=== PATIENT | female | born 1940 | race Caucasian/White ===

== ENCOUNTER 2021-03-30 10:37 | Emergency (ER) | payer MEDICARE, SELFPAY ==
[~2021-03-30] VITALS: Ht 152.4 cm; Wt 61.2 kg
[2021-03-30 10:45] VITALS: BP_SYST 140
--- NOTE | 2021-03-30 10:48 | NUR ---
PT C/O SOB, COUGH CONGESTION BODY ACHES X6 DAYS. PT COMPLETED ZPAK AND ROUND OF STEROIDS PO WITHOUT RELIEF.
[2021-03-30] MEDS ORDERED: IPRATROPIUM/ALBUTEROL SULFATE 3 ML AMPUL.NEB (DUONEB) INH ONE (11:00)
[2021-03-30] MEDS ORDERED: methylPREDNISolone SOD SUCC/PF 62.5 MG/ML VIAL IVP ONE (11:00)
[2021-03-30 11:16] LABS: BASOPHILS % (AUTO) 0.3 % (0.0-2.0); EOSINOPHILS % (AUTO) 0.4 % (0.0-4.0); HEMATOCRIT 44.2 % (36-48); HEMOGLOBIN 15.3 g/dL (12.0-16.0); LYMPHOCYTES # (AUTO) 1.3 K/uL (1.0-5.5); LYMPHOCYTES % (AUTO) 21.5 % (20.5-51.5); MEAN CORPUSCULAR HEMOGLOBIN 34 pg (27-31); MEAN CORPUSCULAR HGB CONC 35 % (32-36); MEAN CORPUSCULAR VOLUME 97 fL (79.0-98.0); MONOCYTES # (AUTO) 0.5 K/uL (0.0-1.0); MONOCYTES % (AUTO) 8.7 % (1.7-9.3); NEUTROPHILS # (AUTO) 4.1 K/uL (1.8-7.7); NEUTROPHILS % (AUTO) 69.1 % (40.0-70.0); PLATELET COUNT (AUTO) 166 K/uL (130-430); RED BLOOD CELL COUNT(AUTO) 4.55 MIL/uL (4.2-6.2); RED CELL DISTRIBUTION WIDTH 13.4 % (9.0-15.0)
[2021-03-30 11:33] LABS: ANION GAP 11 (5-15); CALCIUM 8.9 mg/dL (8.4-11.0); CHLORIDE 97 mmol/L (98-107); CREATININE 0.85 mg/dL (0.55-1.30); GLUCOSE 88 mg/dL (70-99); POTASSIUM 3.7 mmol/L (3.5-5.1); SODIUM SERUM 134 mmol/L (136-145); UREA NITROGEN, BLOOD 11 mg/dL (8-21)
[2021-03-30 11:39] LABS: ALANINE AMINOTRANSFERASE 58 U/L (12-78); ALBUMIN 3.7 g/dL (3.4-4.8); ASPARTATE AMINOTRANSFERASE 35 U/L (10-37); TOTAL BILIRUBIN 0.3 mg/dL (0.0-1.0)
--- NOTE | 2021-03-30 12:28 | NUR ---
PT O2 SATURATION 89% PLACED ON 2L NC
[2021-03-30] MEDS ORDERED: CASIRIVIMAB 600 MG, IMDEVIMAB 600 MG in NS 250 ML IV ONE ×2 (13:15→13:45)
--- NOTE | 2021-03-30 15:24 | NUR ---
antibodies infusing per order
--- NOTE | 2021-03-30 17:00 | NUR ---
antibodies completed tolerated well. pending dispo.
[2021-03-30] MEDS ORDERED: PRED20TA PO (17:26)
[2021-03-30 17:42] VITALS: BP_SYST 131
--- NOTE | 2021-03-30 17:45 | NUR ---
pt verbalizes dc instructions. no acute distress noted. iv removed . stable on dc
== END 2021-03-30 17:42 | disposition home or self-care (01) ==
LOC: SED 10:37
DX: U07.1 COVID-19 (principal); J40 Bronchitis, not specified as acute or chronic; R09.02 Hypoxemia; I48.91 Unspecified atrial fibrillation; F17.210 Nicotine dependence, cigarettes, uncomplicated; Z71.6 Tobacco abuse counseling
CPT/HCPCS: 36415; 71045; 80053; 82803; 83880; 84484; 85025; 87426; 93005; 94640; 96374; 99285; J2930; J7050; M0243; Q0243